=== PATIENT | female | born 1980 | race Caucasian/White ===

== ENCOUNTER 2018-08-09 15:22 | Emergency (ER) | payer MEDICAID, OTHER ==
[~2018-08-09] VITALS: Ht 167.6 cm; Wt 99.8 kg
--- NOTE | 2018-08-09 16:01 | ED Chest Pain ---
General Chief Complaint: Chest Pain Stated Complaint: CHEST PAINS, COLD SWEATS, SOB History of Present Illness Date Seen by Provider: Aug 09, 2018 Time Seen by Provider: 15:45 This is a 38-year-old female with a history of hypertension, diabetes, anxiety, tobacco abuse, here for back pain, neck pain, headache, chest pain for the last 2 days. No fevers. No visual change or focal weakness, numbness, or tingling. She has had a cough last 3 days productive of whitish mucus. She's felt occasional cold sweats with that. Her symptoms are nonexertional. She's had pneumonia several times in the past and she says that she feels similar although not identical, she has a hard time characterizing the difference. Her back pain is significantly worse with palpation or with movement of the trunk. Additionally she feels slightly "nervous" and shaky. She had a negative stress test between 6 and 7 months ago she estimates. Allergies and Home Medications Allergies Uncoded Allergies: PENICILLIN (Allergy, Unknown, 08/09/18) Home Medications Benzonatate 100 Mg Capsule, 200 MG PO BID PRN for COUGH Prescribed by: GREGORIO GILL on 08/09/18 1642 Levofloxacin 750 Mg Tablet, 750 MG PO DAILY Prescribed by: GREGORIO GILL on 08/09/18 1642 Patient Home Medication List Home Medication List Reviewed: Yes Review of Systems Review of Systems Constitutional: see HPI EENTM: No Symptoms Reported Respiratory: See HPI Cardiovascular: See HPI Gastrointestinal: No Symptoms Reported Genitourinary: No Symptoms Reported Musculoskeletal: see HPI Skin: no symptoms reported Psychiatric/Neurological: See HPI Endocrine: No Symptoms Reported Hematologic/Lymphatic: No Symptoms Reported Past Kdcqiuk-Ivwktj-Liuiku Hx Past Med/Social Hx: Reviewed Nursing Past Med/Soc Hx Patient Social History Recent Foreign Travel: No Contact w/Someone Who Travel: No Physical Exam Vital Signs Vital Signs - First Documented 08/09/18 16:01 Temp 97.9 Pulse 72 Resp 16 B/P (MAP) 164/79 (107) Pulse Ox 95 O2 Delivery Room Air Capillary Refill : Height, Weight, BMI Height: '" Weight: lbs. oz. 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 Norm as Tested; No Abnormal Cerebellar Tests, No Abnormal Gait Skin: Warm/Dry Progress/Results/Core Measures Results/Orders Lab Results Laboratory Tests Test 08/09/18 16:00 Range/Units White Blood Count 11.2 H 4.3-11.0 10^3/uL Red Blood Count 4.60 4.35-5.85 10^6/uL Hemoglobin 14.3 11.5-16.0 G/DL Hematocrit 43 35-52 % Mean Corpuscular Volume 93 80-99 FL Mean Corpuscular Hemoglobin 31 25-34 PG Mean Corpuscular Hemoglobin Concent 33 32-36 G/DL Red Cell Distribution Width 12.1 10.0-14.5 % Platelet Count 288 130-400 10^3/uL Mean Platelet Volume 10.7 H 7.4-10.4 FL Sodium Level 135 135-145 MMOL/L Potassium Level 4.0 3.6-5.0 MMOL/L Chloride Level 97 L 98-107 MMOL/L Carbon Dioxide Level 21 21-32 MMOL/L Anion Gap 17 H 5-14 MMOL/L Blood Urea Nitrogen 13 7-18 MG/DL Creatinine 0.63 0.60-1.30 MG/DL Estimat Glomerular Filtration Rate > 60 BUN/Creatinine Ratio 21 Glucose Level 298 H 70-105 MG/DL Calcium Level 8.9 8.5-10.1 MG/DL Corrected Calcium 8.9 8.5-10.1 MG/DL Total Bilirubin 0.2 0.1-1.0 MG/DL Aspartate Amino Transf (AST/SGOT) 12 5-34 U/L Alanine Aminotransferase (ALT/SGPT) 19 0-55 U/L Alkaline Phosphatase 91 40-136 U/L Troponin T 7 <=10 NG/L Total Protein 7.1 6.4-8.2 GM/DL Albumin 4.0 3.2-4.5 GM/DL Lipase 33 8-78 U/L My Orders Orders - GREGORIO GILL T DO Chest 1 View Ap/Pa Only (08/09/18 15:44) Ekg Tracing (08/09/18 15:44) Comprehensive Metabolic Panel (08/09/18 15:44) Monitor-Rhythm Ecg Trace Only (08/09/18 15:44) Saline Lock/Iv-Start (08/09/18 15:44) Lipase (08/09/18 15:44) Cbc No Diff (08/09/18 15:44) Troponin T (08/09/18 15:44) Levofloxacin Tablet (Levaquin Tablet) (08/09/18 16:45) Ibuprofen Tablet (Motrin Tablet) (08/09/18 16:45) Levofloxacin Tablet (Levaquin Tablet) (08/09/18 16:53) Medications Given in ED Current Medications Medications Dose Ordered Sig/Marck Route Start Time Stop Time Status Last Admin Dose Admin Ibuprofen 800 mg ONCE ONCE PO 08/09/18 16:45 08/09/18 16:46 DC 08/09/18 17:08 800 MG Levofloxacin 750 mg ONCE ONCE PO 08/09/18 16:45 08/09/18 16:46 DC 08/09/18 17:08 750 MG Vital Signs/I&O 08/09/18 16:01 Temp 97.9 Pulse 72 Resp 16 B/P (MAP) 164/79 (107) Pulse Ox 95 O2 Delivery Room Air Progress Progress Note #1: Progress Note This is a 38-year-old female with a history of hypertension, diabetes, anxiety, back abuse, on Chantix, here for 3 days of productive cough, 2 days of back and chest discomfort as well as neck pain without stiffness, and associated headache without fever or neurologic deficits. She does have a negative stress test about 6-7 months ago she states. ECG does have T-wave inversions in 3 and aVF, a single troponin at this time we will rule out acute myocardial infarction as her symptoms have been ongoing for well greater than 6 hours. She is not acutely toxic appearing, she has no meningismus, she does have reproducible tenderness in the neck and back musculature, apart from diabetes she does not have immune compromise, I do not feel that she is at risk for bacterial meningitis. Pneumonia or a viral syndrome with associated bronchitis could potentially be causing her to have myalgias and headache. She is neurologically intact and does not take anticoagulant medications, head CT is not indicated at this time. She has no pulse deficits or migratory pain, no ripping or tearing pain, I feel dissection is very unlikely. No unilateral leg swelling, no hormonal therapy, no history of blood clots, no hemoptysis, also with a prominent productive cough and entity like pulmonary embolus is obviously less likely. We'll treat patient symptomatically, follow-up on chest x-ray, basic labs including troponin as above, and we will continue to monitor. Progress Note #2: Progress Note Patient was treated with azithromycin about a month ago, while this technically puts her at risk for healthcare associated pneumonia I will treat with Levaquin for community-acquired pneumonia and patient will follow up with her doctor as soon as possible. She will return immediately for any concerning change in her condition. EKG : Comment 1532: Sinus rhythm with marked sinus arrhythmia rate of 76. Normal axis. T-wave inversions in 3 and aVF. Small inferior and anterolateral precordial Q waves. Departure Impression Primary Impression: Pneumonia Additional Impressions: Tobacco abuse Headache Disposition: HOME, SELF-CARE Condition: Stable Departure-Patient Inst. Referrals: NO,LOCAL PHYSICIAN (PCP) Primary Care Physician Patient Instructions: Community-Acquired Pneumonia, Adult (DC) Scripts Benzonatate (TESSALON PERLES) 100 Mg Capsule 200 MG PO BID PRN for COUGH for 7 Days, #30 CAP Prov: GREGORIO GILL DO 08/09/18 Levofloxacin (Levaquin) 750 Mg Tablet 750 MG PO DAILY for 4 Days, #4 TAB Prov: GREGORIO GILL DO 08/09/18 GREGORIO GILL DO Aug 09, 2018 16:01
[2018-08-09 16:05] LABS: HEMOGLOBIN 14.3 G/DL (11.5-16.0); MEAN PLATELET VOLUME 10.7 FL (7.4-10.4); RED CELL DISTRIBUTION WIDTH 12.1 % (10.0-14.5); WHITE BLOOD COUNT 11.2 10^3/uL (4.3-11.0)
--- NOTE | 2018-08-09 16:26 | Diagnostic Imaging Report ---
INDICATION: Chest pain with radiation into the neck and shoulder. TECHNIQUE: Single-view chest at 03:51 p.m. CORRELATION STUDY: None. FINDINGS: The heart size, mediastinal configuration and pulmonary vascularity are within normal limits. Asymmetric infiltrate at the right lung base. Remaining lung ocntreras are relatively clear. IMPRESSION: 1. Findings suggesting infiltrate at the right lung base. Dictated by: Dictated on workstation # [id number]
[2018-08-09 16:29] LABS: ALANINE AMINOTRANSFERASE 19 U/L (0-55); ALKALINE PHOSPHATASE 91 U/L (40-136); BILIRUBIN,TOTAL 0.2 MG/DL (0.1-1.0); BUN/CREATININE RATIO 21; CALCIUM 8.9 MG/DL (8.5-10.1); CARBON DIOXIDE 21 MMOL/L (21-32); CHLORIDE 97 MMOL/L (98-107); CREATININE SERUM 0.63 MG/DL (0.60-1.30); GFR ESTIMATED > 60; GLUCOSE 298 MG/DL (70-105); SODIUM 135 MMOL/L (135-145)
[2018-08-09 16:30] LABS: LIPASE 33 U/L (8-78); TOTAL PROTEIN 7.1 GM/DL (6.4-8.2)
[2018-08-09] MEDS ORDERED: BENZ100C18 PO (16:42)
[2018-08-09] MEDS ORDERED: LEVO750T9 PO (16:42)
[2018-08-09] MEDS ORDERED: IBUPROFEN 800 MG (MOTRIN) TAB PO ONE (16:45)
[2018-08-09] MEDS ORDERED: LEVOFLOXACIN 750 MG TAB (LEVAQUIN) PO ONE (16:45)
[2018-08-09] MEDS ORDERED: LEVOFLOXACIN 500 MG TAB (LEVAQUIN) ONE (16:53)
[2018-08-09 17:30] VITALS: BP 167/78
== END 2018-08-09 17:12 | disposition home or self-care (01) ==
LOC: ER FS 15:24
DX: J18.9 Pneumonia, unspecified organism (principal); R51 Headache; I10 Essential (primary) hypertension; E11.9 Type 2 diabetes mellitus without complications; F41.9 Anxiety disorder, unspecified; Z88.0 Allergy status to penicillin; Z72.0 Tobacco use
CPT/HCPCS: 36415; 71045; 80053; 83690; 84484; 85027; 93041

== ENCOUNTER 2019-06-11 17:34 | Emergency (ER) | payer MEDICAID, OTHER ==
[~2019-06-11] VITALS: Ht 167 cm; Wt 110.0 kg
[~2019-06-11 17:34] MED LIST: BENZ100C18 PO; LEVO750T9 PO
--- NOTE | 2019-06-11 18:22 | ED General ---
General Chief Complaint: Head/Cervical Problems Stated Complaint: STIFF NECK,SWOLLEN JAW,COUGH,HEADACHE Nursing Triage Note: PT REPORTS SHE WENT TO URGENT CARE AND HER STREP AND FLU WERE NEGATIVE. NECK STARTED YESTERDAY. JAW PAIN STARTED 4-5 DAYS AGO. LEFT SIDE OF JAW SWOLLEN. REPORTS POSITIVE FOR STREP 2 WEEKS AGO. Nursing Sepsis Screen: No Definite Risk Source of Information: Patient Exam Limitations: No Limitations History of Present Illness Date Seen by Provider: Jun 11, 2019 Time Seen by Provider: 18:20 Initial Comments Patient complains of pain and swelling to the left jaw and neck for the past 4-5 days. It is made her neck stiff. She complains of a left-sided headache. She denies fevers or chills. She is barely able to open her mouth. She was seen in urgent care where fluid strep were negative. She was referred here. Allergies and Home Medications Allergies Coded Allergies: Iodinated Contrast Media (Verified Allergy, Unknown, 06/11/19) ceftriaxone (Verified Allergy, Unknown, 06/11/19) Uncoded Allergies: PENICILLIN (Allergy, Unknown, 08/09/18) Home Medications Benzonatate 100 Mg Capsule, 200 MG PO BID PRN for COUGH Prescribed by: GREGORIO GILL on 08/09/18 1642 Levofloxacin 750 Mg Tablet, 750 MG PO DAILY Prescribed by: GREGORIO GILL on 08/09/18 1642 Patient Home Medication List Home Medication List Reviewed: Yes Review of Systems Review of Systems Constitutional: No fever EENTM: no symptoms reported Respiratory: cough Cardiovascular: no symptoms reported Musculoskeletal: muscle pain, neck pain Psychiatric/Neurological: Headache All Other Systems Reviewed Negative Unless Noted: Yes Past Lfzalih-Nricas-Aqgade Hx Patient Social History Alcohol Use: Denies Use Recreational Drug Use: No Type Used: Cigarettes 2nd Hand Smoke Exposure: Yes Recent Foreign Travel: No Contact w/Someone Who Travel: No Recent Infectious Disease Expo: No Recent Hopitalizations: No Physical Abuse: No Sexual Abuse: No Mistreated: No Fear: No Seasonal Allergies Seasonal Allergies: No Past Medical History Surgeries: Yes Appendectomy, Section, Gallbladder, Tubal Ligation Respiratory: Yes Pneumonia Cardiac: Yes High Cholesterol, Hypertension 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 oz. 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 Norm as Tested Skin: Normal Color, Warm/Dry Focused Exam Lactate Level 06/11/19 18:25: Lactic Acid Level 1.83 Lactic Acid Level Laboratory Tests Test 06/11/19 18:25 Lactic Acid Level 1.83 MMOL/L (0.50-2.00) Progress/Results/Core Measures Suspected Sepsis Recent Fever Within 48 Hours: Yes Infection Criteria Present: Suspected New Infection New/Unexplained Altered Menta: No Sepsis Screen: No Definite Risk SIRS Temperature: Pulse: 79 Respiratory Rate: 16 Laboratory Tests 06/11/19 18:25: White Blood Count 11.0 Blood Pressure 207 /91 Mean: 129 06/11/19 18:25: Lactic Acid Level 1.83 Laboratory Tests 06/11/19 18:25: Creatinine 0.57L, Platelet Count 295, Total Bilirubin < 0.2 Results/Orders Lab Results Laboratory Tests Test 06/11/19 18:25 Range/Units White Blood Count 11.0 4.3-11.0 10^3/uL Red Blood Count 4.95 4.35-5.85 10^6/uL Hemoglobin 15.3 11.5-16.0 G/DL Hematocrit 45 35-52 % Mean Corpuscular Volume 90 80-99 FL Mean Corpuscular Hemoglobin 31 25-34 PG Mean Corpuscular Hemoglobin Concent 34 32-36 G/DL Red Cell Distribution Width 12.1 10.0-14.5 % Platelet Count 295 130-400 10^3/uL Mean Platelet Volume 10.6 H 7.4-10.4 FL Neutrophils (%) (Auto) 52 42-75 % Lymphocytes (%) (Auto) 40 12-44 % Monocytes (%) (Auto) 6 0-12 % Eosinophils (%) (Auto) 2 0-10 % Basophils (%) (Auto) 1 0-10 % Neutrophils # (Auto) 5.7 1.8-7.8 X 10^3 Lymphocytes # (Auto) 4.4 H 1.0-4.0 X 10^3 Monocytes # (Auto) 0.6 0.0-1.0 X 10^3 Eosinophils # (Auto) 0.2 0.0-0.3 10^3/uL Basophils # (Auto) 0.1 0.0-0.1 10^3/uL Sodium Level 135 135-145 MMOL/L Potassium Level 4.1 3.6-5.0 MMOL/L Chloride Level 99 98-107 MMOL/L Carbon Dioxide Level 23 21-32 MMOL/L Anion Gap 13 5-14 MMOL/L Blood Urea Nitrogen 11 7-18 MG/DL Creatinine 0.57 L 0.60-1.30 MG/DL Estimat Glomerular Filtration Rate > 60 BUN/Creatinine Ratio 19 Glucose Level 323 H 70-105 MG/DL Lactic Acid Level 1.83 0.50-2.00 MMOL/L Calcium Level 9.0 8.5-10.1 MG/DL Corrected Calcium 9.1 8.5-10.1 MG/DL Total Bilirubin < 0.2 0.1-1.0 MG/DL Aspartate Amino Transf (AST/SGOT) 13 5-34 U/L Alanine Aminotransferase (ALT/SGPT) 17 0-55 U/L Alkaline Phosphatase 113 40-136 U/L Total Protein 7.0 6.4-8.2 GM/DL Albumin 3.9 3.2-4.5 GM/DL My Orders Orders - NEMO FELTON MD Ct Head Wo (06/11/19 18:14) Cbc With Automated Diff (06/11/19 18:14) Comprehensive Metabolic Panel (06/11/19 18:14) Lactic Acid Analyzer (06/11/19 18:14) Iv Heplock-Insert (Order) (06/11/19 18:16) Iohexol Injection (Omnipaque 350 Mg/Ml 1 (06/11/19 19:00) Received Contrast (Hold Metformin- Contr (06/11/19 19:00) Sodium Chloride Flush (Catheter Flush Sy (06/11/19 19:00) Ns (Ivpb) (Sodium Chloride 0.9% Ivpb Bag (06/11/19 19:00) Ct Neck (Soft Tissue) Wo (06/11/19 18:14) Vital Signs/I&O 06/11/19 18:05 Temp 36.4 Pulse 79 Resp 16 B/P (MAP) 207/91 (129) Pulse Ox 95 Capillary Refill : Less Than 3 Seconds Blood Pressure Mean: 129 Progress Note : Time: 19:41 Progress Note Test results were discussed with patient. She does not appear ill. I think she has sialoadenitis. Will treat with clindamycin. Departure Impression Primary Impression: Sialoadenitis of submandibular gland Disposition: HOME, SELF-CARE Condition: Stable Departure-Patient Inst. Decision time for Depature: 19:39 Referrals: NO,LOCAL PHYSICIAN (PCP) Primary Care Physician Patient Instructions: Salivary Gland Infection Add. Discharge Instructions: Stay hydrated. Ibuprofen or Tylenol for pain. Heating pad to salivary gland. Sialagogues (for example lemon drops) will help promote saliva flow. See your doctor or return here if not improving or worsen. EEG glucose checked when you get well. You may have diabetes All discharge instructions reviewed with patient and/or family. Voiced understanding. Scripts Clindamycin HCl (Clindamycin HCl) 300 Mg Capsule 300 MG PO TID, #21 CAP Prov: NEMO FELTON MD 06/11/19 NEMO FELTON MD Jun 11, 2019 18:22
[2019-06-11 18:36] LABS: BASOPHILS # (AUTO) 0.1 10^3/uL (0.0-0.1); BASOPHILS % (AUTO) 1 % (0-10); EOSINOPHILS # (AUTO) 0.2 10^3/uL (0.0-0.3); EOSINOPHILS % (AUTO) 2 % (0-10); HEMATOCRIT 45 % (35-52); HEMOGLOBIN 15.3 G/DL (11.5-16.0); LYMPHOCYTES # (AUTO) 4.4 X 10^3 (1.0-4.0); LYMPHOCYTES % (AUTO) 40 % (12-44); MEAN CORPUSCULAR HEMOGLOBIN 31 PG (25-34); MEAN CORPUSCULAR HGB CONC 34 G/DL (32-36); MEAN CORPUSCULAR VOLUME 90 FL (80-99); MEAN PLATELET VOLUME 10.6 FL (7.4-10.4); MONOCYTES # (AUTO) 0.6 X 10^3 (0.0-1.0); MONOCYTES % (AUTO) 6 % (0-12); NEUTROPHILS # (AUTO) 5.7 X 10^3 (1.8-7.8); NEUTROPHILS % (AUTO) 52 % (42-75); PLATELET COUNT 295 10^3/uL (130-400); RED CELL DISTRIBUTION WIDTH 12.1 % (10.0-14.5)
[2019-06-11 18:53] LABS: CARBON DIOXIDE 23 MMOL/L (21-32); CHLORIDE 99 MMOL/L (98-107); POTASSIUM 4.1 MMOL/L (3.6-5.0); SODIUM 135 MMOL/L (135-145)
[2019-06-11 18:54] LABS: ALANINE AMINOTRANSFERASE 17 U/L (0-55); ALBUMIN 3.9 GM/DL (3.2-4.5); ALKALINE PHOSPHATASE 113 U/L (40-136); BILIRUBIN,TOTAL < 0.2 MG/DL (0.1-1.0); BUN/CREATININE RATIO 19; CREATININE SERUM 0.57 MG/DL (0.60-1.30); GFR ESTIMATED > 60; GLUCOSE 323 MG/DL (70-105)
[2019-06-11] MEDS ORDERED: CATHETER FLUSH 10 ML SYR IV PRN (19:00)
[2019-06-11] MEDS ORDERED: NS 100 ML (IVPB) BAG IV ONE (19:00)
[2019-06-11] MEDS ORDERED: HOLD METFORMIN - RECEIVED CONTRAST 20 ML VIAL IV SCH (19:00)
[2019-06-11] MEDS ORDERED: IOHEXOL 350 MG/ML 100 ML (OMNIPAQUE 350) VIAL IV ONE (19:00)
--- NOTE | 2019-06-11 19:22 | Diagnostic Imaging Report ---
PROCEDURE: CT head without contrast. TECHNIQUE: Multiple contiguous axial images were obtained through the brain without the use of intravenous contrast. Auto Exposure Controls were utilized during the CT exam to meet ALARA standards for radiation dose reduction. INDICATION: Jaw pain. No prior studies are available for comparison. Ventricles and sulci are within normal limits. No sulcal effacement or midline shift is detected. No acute intra-axial or extra-axial hemorrhage is detected. Cisterns are patent. Visualized paranasal sinuses are clear. IMPRESSION: No acute intracranial process is detected. Dictated by: Dictated on workstation # [id number]
--- NOTE | 2019-06-11 19:24 | Diagnostic Imaging Report ---
PROCEDURE: CT neck soft tissue without contrast. TECHNIQUE: Multiple contiguous axial images were obtained through the neck without the use of intravenous contrast. Auto Exposure Controls were utilized during the CT exam to meet ALARA standards for radiation dose reduction. INDICATION: Neck and jaw pain with left side jaw swelling. No prior studies are available for comparison. Visualized intracranial structures are unremarkable. The posterior nasopharynx and oropharynx are unremarkable. The parapharyngeal fat planes are preserved. Epiglottis and larynx are unremarkable. No thyroid mass is detected. The submandibular and parotid glands appear to be symmetric bilaterally. No retropharyngeal fluid collection or abscess is identified. No cervical lymphadenopathy is seen. No significant facial swelling or evidence of facial cellulitis is identified. No fluid collections are seen. Driver Trainee spaces are unremarkable. IMPRESSION: Essentially unremarkable noncontrast CT of the neck. Dictated by: Dictated on workstation # [id number]
[2019-06-11] MEDS ORDERED: CLIN300C11 PO (19:41)
[2019-06-11] MEDS ORDERED: CLINDAMYCIN 150 MG (CLEOCIN) CAP PO ONE (19:45)
[2019-06-11 19:51] VITALS: BP 188/87
== END 2019-06-11 19:50 | disposition home or self-care (01) ==
LOC: EDUNIT# 17:34 → ER FS 17:35
DX: K11.20 Sialoadenitis, unspecified (principal); I10 Essential (primary) hypertension; E11.9 Type 2 diabetes mellitus without complications; Z91.041 Radiographic dye allergy status; Z88.1 Allergy status to other antibiotic agents; Z88.0 Allergy status to penicillin; Z77.22 Contact with and (suspected) exposure to environmental tobacco smoke (acute) (chronic)
CPT/HCPCS: 36415; 70450; 70490; 80053; 83605; 85025